=== PATIENT | female | born 1940 | race Caucasian/White ===

== ENCOUNTER → 2016-06-07 | Outpatient (CLI) | payer BC ==
--- NOTE | 2016-06-07 09:54 | MA ---
Screening Digital Mammogram Clinical Indications: Routine screening. Technique: Standard cephalocaudal and mediolateral oblique projections are obtained. This examinati on was processed by the [employer] computer aided detection system. Comparison: May 2015, April 2014, March 2013 and January 2012 Breast density: C; The breast tissue is heterogeneously dense, which could obscure detection of small masses. Findings: CAD was reviewed. No suspicious findings are identified. Impression: Negative mammogram. BI-RADS 1. Recommendation: Routine screening is recommended in one year, as long as physical examination is claudine ign in this patient with moderately dense breast parenchyma. [facility] will send [facility] result letter to the patient. Negative mammography should not preclude additional workup of a clinically suspicious finding. The patient's information is entered into a reminder system with a target due date for her next mammo gram.
== END ==
LOC: BMCIMAGING 09:16
DX: Z12.31 Encounter for screening mammogram for malignant neoplasm of breast (principal)
CPT/HCPCS: G0202

== ENCOUNTER → 2016-08-23 | Outpatient (CLI) | payer BC ==
[~2016-08-23] MED LIST: IOPAMIDOL (ISOVUE 370) 100 ML BTL IV ONE
[2016-08-23 18:09] LABS: CREATININE 0.8 mg/dL (0.6-1.0); GLOMERULAR FILTRATION RATE > 60
== END ==
LOC: FIMAGING 17:02
PROVIDERS: ATTEND Internal Medicine
DX: R07.9 Chest pain, unspecified (principal); R06.02 Shortness of breath; R05 Cough
CPT/HCPCS: Q9967

== ENCOUNTER → 2016-12-31 | Outpatient (CLI) | payer BC | LOC: BMCIMAGING 09:49 | PROVIDERS: ATTEND Nurse Practitioner Adult Health | DX: R91.8 Other nonspecific abnormal finding of lung field (principal); R05 Cough; R06.2 Wheezing ==

== ENCOUNTER → 2018-04-24 | Outpatient (CLI) | payer BC | LOC: BMCIMAGING 13:51 | PROVIDERS: ATTEND Internal Medicine | DX: Z12.31 Encounter for screening mammogram for malignant neoplasm of breast (principal) ==

== ENCOUNTER → 2018-08-20 | Outpatient (CLI) | payer BC | LOC: BMCIMAGING 14:24 | PROVIDERS: ATTEND Internal Medicine | DX: Z09 Encounter for follow-up examination after completed treatment for conditions other than malignant neoplasm (principal); Z87.01 Personal history of pneumonia (recurrent) ==